=== PATIENT | female | born 1975 | race Caucasian/White ===

== ENCOUNTER 2024-09-11 16:23 | Emergency (ER) | payer MEDICAID, SELFPAY ==
[2024-09-11 16:52] VITALS: BP 145/65; PULSE 103; RESP 20; TEMP 36.5; O2SAT 95; BMI 27.5
--- NOTE | 2024-09-11 17:14 | PD.EDRME ---
Rapid Medical Screening Exam E Arrival date/time: 09/11/24 16:23 This is a 49-year-old female that comes in with complaints of right eye swelling. Patient has had this eye swelling for the past 3 days but today got the worst. patient was seen by primary doctor and was given Bactrim. Patient states that it started off almost like a pimple to her right cheek and swelling started to go to her eye. Patient is having a hard time opening her eye. Patient has a lot of eye pain. Erythema and swelling surrounds entire right upper and lower eyelid. Patient has a history of asthma. I have greeted and performed a focused initial assessment of this patient. Initial appropriate labs ordered at this time. A comprehensive ED assessment and evaluation of the patient and analysis of all test and completion of medical decision making process will be conducted by additional ED provider. Chief Complaint: Eye Problems Time Seen by Provider: 09/11/24 17:06 Vital signs: Vital Signs Temperature 97.7 F 09/11/24 16:52 Pulse Rate 103 H 09/11/24 16:52 Respiratory Rate 20 09/11/24 16:52 Blood Pressure 145/65 H 09/11/24 16:52 Pulse Oximetry (%) 95 09/11/24 16:52 Oxygen Delivery Method Room Air 09/11/24 16:52
[2024-09-11 17:50] LABS: Lactate (Lactic Acid) 0.7 mMol/L (0.4-2.0)
[2024-09-11 18:11] LABS: Basophils % (Auto) 0 % (0-2.5); Eosinophils # (Auto) 0.3 Thou/mm3 (0.0-0.5); Eosinophils % (Auto) 4 % (0-10); Hemoglobin 13.4 g/dL (12.0-16.0); Immature Granulocytes % (Auto) 0 % (0-0); Immature Granulocytes Auto 0.02 Thou/mm3 (0.00-0.00); Lymphocytes # (Auto) 1.8 Thou/mm3 (1.0-4.8); Lymphocytes % (Auto) 19 % (10-50); Mean Corpuscular HGB Conc 33.5 g/dl (31.0-37.0); Mean Corpuscular Hemoglobin 30.1 pg (25.0-35.0); Mean Corpuscular Volume 90 fL (80-100); Monocytes # (Auto) 0.8 Thou/mm3 (0.0-0.8); Monocytes % (Auto) 8 % (0-12); Neutrophils # (Auto) 6.6 Thou/mm3 (1.8-7.7); Neutrophils % (Auto) 69 % (37-80); Nucleated Red Blood Cell % 0 /100 WBC (0); Platelet Count 266 Thou/mm3 (140-440); RDW Standard Deviation 39.9 fL (36.4-46.3); Red Blood Count 4.45 Miln/mm3 (4.00-5.20); White Blood Count 9.5 Thou/mm3 (3.6-11.0)
[2024-09-11 18:12] LABS: Alanine Aminotransferase 39 U/L (10-49); Albumin, Serum 4.5 gm/dL (3.5-5.0); Albumin/Globulin Ratio 1.9 (1.2-2.2); Alkaline Phosphatase 82 U/L (46-116); Anion Gap 9 (7-16); Aspartate Amino Transferase 35 U/L (0-34); BUN/Creatinine Ratio 11 Ratio (12-20); Bilirubin,Total 0.4 mg/dL (0.3-1.2); Blood Urea Nitrogen 9 mg/dL (9-23); C-Reactive Protein 5.3 mg/dL (0.0-0.9); Calcium 9.7 mg/dL (8.3-10.6); Calcium (Corrected) 9.7 mg/dL (8.5-10.1); Carbon Dioxide 22.2 mMol/L (20.0-31.0); Chloride 106 mMol/L (98-107); Creatinine (Component) 0.8 mg/dL (0.6-1.3); Estimated Creatinine Clearance 72.6 mL/min (>60); Globulin 2.4 gm/dL (2.3-3.5); Glucose 92 mg/dL (74-106); Osmolality,Calculated 272 (275-295); Potassium 4.1 mMol/L (3.4-5.1); Sodium 137 mMol/L (136-145); Total Protein 6.9 gm/dL (5.7-8.2); eGFR > 60 See Note
[2024-09-11 18:18] LABS: Procalcitonin < 0.04 ng/ml (0.0-0.49)
[2024-09-11 18:33] LABS: Sed Rate (ESR) 19 mm/hr (0-20)
--- NOTE | 2024-09-11 21:30 | PC.NURSE ---
CALLED PT IN ER LOBBY AND OUTSIDE AND NO ANSWER.
--- NOTE | 2024-09-11 22:03 | PC.NURSE ---
NO ANSWER FOR CALL BACK TO MAIN ED
--- NOTE | 2024-09-11 22:25 | PC.NURSE ---
NO ANSWER FOR CALL BACK TO MAIN ED
== END 2024-09-11 22:25 | disposition left against medical advice (07) ==
LOC: SERX 18:29
PROVIDERS: Nurse Practitioner Family; Emergency Provider Emergency Medicine; PCP Physician Assistant Medical
DX: H57.11 Ocular pain, right eye (principal); H57.89 Other specified disorders of eye and adnexa; Z53.29 Procedure and treatment not carried out because of patient's decision for other reasons
CPT/HCPCS: 36415; 80053; 83605; 84145; 85025; 85652; 86140; 87040; 99281